=== PATIENT | female | born 1970 | race American Indian/Alaskan Native ===

== ENCOUNTER 2020-07-24 00:34 | Emergency (ER) | payer SELFPAY ==
--- NOTE | 2020-07-24 01:35 | Event Note ---
ED Screening Note Date of service: 07/24/20 Time: 01:32 ED Screening Note: pt was brought to ED c/o chest pain, sob, generalized body aches, cough, and SINHA since yesterday. She reports fever at home of 104. She states that last night she felt like she was going to pass out and so called EMS. When the checked her BP it was 200 systolic and she had temp of 102. Pt admits that she did not take her BP meds for the day. She has hx asthma and HTN This initial assessment/diagnostic orders/clinical plan/treatment(s) is/are subject to change based on patients health status, clinical progression and re- assessment by fellow clinical providers in the ED. Further treatment and workup at subsequent clinical providers discretion. Patient/guardian urged not to elope from the ED as their condition may be serious if not clinically assessed and managed. Initial orders include: Chest pain order set
[2020-07-24 01:47] LABS: Basophils % (Auto) 0.7 % (0.0-1.8); Eosinophils % (Auto) 0.2 % (0.0-4.3); Hematocrit 40.5 % (30.3-42.9); Hemoglobin 13.7 gm/dl (10.1-14.3); Lymphocytes # (Auto) 1.5 K/mm3 (1.2-5.4); Lymphocytes % (Auto) 26.8 % (13.4-35.0); Mean Corpuscular HGB Conc 34 % (30-34); Mean Corpuscular Volume 83 fl (79-97); Monocytes # (Auto) 0.7 K/mm3 (0.0-0.8); Monocytes % (Auto) 11.9 % (0.0-7.3); Platelet Count 215 K/mm3 (140-440); Red Blood Count 4.88 M/mm3 (3.65-5.03)
[2020-07-24 02:07] LABS: Alanine Aminotransferase 46 units/L (7-56); Albumin 4.1 g/dL (3.9-5); BUN/Creatinine Ratio 13; Blood Urea Nitrogen 14 mg/dL (7-17); Hemolysis Index 1
--- NOTE | 2020-07-24 02:35 | XRay Report ---
XR chest routine 2V INDICATION / CLINICAL INFORMATION: Chest Pain COMPARISON: None available. FINDINGS: SUPPORT DEVICES: None. HEART / MEDIASTINUM: No significant abnormality. LUNGS / PLEURA: Patchy bilateral airspace disease in a peripheral predilection. Costophrenic sulci ar e sharp. No pneumothorax. ADDITIONAL FINDINGS: No significant additional findings. IMPRESSION: 1. Bilateral airspace disease concerning for infection. Covid is a consideration. Signer Name: Bienvenido Valera MD Signed: 07/24/2020 2:30 AM Workstation Name: [id number]
[2020-07-24] MEDS ORDERED: dexAMETHasone 20 MG/5 ML VIAL IV ONE (03:15)
[2020-07-24] MEDS ORDERED: cefTRIAXone/NS 1 GM/50 ML 1 GM/50 ML BAG IV ONE (03:15)
[2020-07-24] MEDS ORDERED: ASPIRIN 325 MG TAB PO ONE (03:16)
[2020-07-24] MEDS ORDERED: ACETAMINOPHEN 500 MG TAB PO ONE (03:27)
--- NOTE | 2020-07-24 03:30 | Emergency Department Report ---
ED General Adult HPI - General Chief complaint: Chest Pain Stated complaint: HIGH BLOOD PRESSURE PUI?: Yes Source: patient Mode of arrival: Stretcher Limitations: No Limitations - History of Present Illness Initial comments: Patient is a 50-year-old -[place] female history of asthma who presents for cough ,malaise, and body aches with intermittent nausea x3 days. Patient denies suspicious contacts or travel. No T-max noted at home no fever noted in triage today. Cough is productive thick clear. Symptoms are exacerbated by activity. Patient states out of albuterol inhaler. Severity scale (0 -10): 3 - Related Data Previous Rx's Medication Instructions Recorded Last Taken Type Albuterol Mdi (or & Nicu Only) 2 puff IH QID PRN #8.5 gram 07/24/20 Unknown Rx [ProAir HFA Inhaler] Azithromycin 500 mg PO DAILY #5 tablet 07/24/20 Unknown Rx dexAMETHasone [Decadron] 4 mg PO Q12H 3 Days #6 tablet 07/24/20 Unknown Rx Allergies Allergy/AdvReac Type Severity Reaction Status Date / Time morphine Allergy Itching Verified 07/24/20 01:39 ED Review of Systems ROS: Stated complaint: HIGH BLOOD PRESSURE Other details as noted in HPI Constitutional: chills, fever, malaise Eyes: denies: eye pain, eye discharge, vision change ENT: denies: ear pain, throat pain Respiratory: cough, shortness of breath, wheezing Cardiovascular: denies: chest pain, palpitations Endocrine: no symptoms reported Gastrointestinal: denies: abdominal pain, nausea, vomiting, diarrhea Genitourinary: denies: urgency, dysuria, discharge Musculoskeletal: other (bodyaches ) Skin: denies: rash, lesions Neurological: denies: headache, weakness, paresthesias Psychiatric: denies: anxiety, depression Hematological/Lymphatic: denies: easy bleeding, easy bruising ED Past Medical Hx - Past Medical History Previous Medical History?: Yes Hx Hypertension: Yes Hx Asthma: Yes - Surgical History Past Surgical History?: Yes Additional Surgical History: Hysterectomy - Social History Smoking Status: Current Every Day Smoker Substance Use Type: Alcohol - Medications Home Medications: Home Medications Medication Instructions Recorded Confirmed Last Taken Type Albuterol Mdi (or & Nicu Only) 2 puff IH QID PRN #8.5 gram 07/24/20 Unknown Rx [ProAir HFA Inhaler] Azithromycin 500 mg PO DAILY #5 tablet 07/24/20 Unknown Rx dexAMETHasone [Decadron] 4 mg PO Q12H 3 Days #6 tablet 07/24/20 Unknown Rx ED Physical Exam - General Limitations: No Limitations General appearance: alert, in no apparent distress - Head Head exam: Present: atraumatic, normocephalic - Eye Eye exam: Present: normal appearance, EOMI Pupils: Present: normal accommodation - ENT ENT exam: Present: mucous membranes moist - Neck Neck exam: Present: normal inspection, full ROM. Absent: tenderness - Respiratory Respiratory exam: Present: normal lung sounds bilaterally. Absent: respiratory distress, wheezes, rales, rhonchi, stridor, chest wall tenderness - Cardiovascular Cardiovascular Exam: Present: regular rate, normal rhythm, normal heart sounds. Absent: systolic murmur, diastolic murmur, rubs, gallop - GI/Abdominal GI/Abdominal exam: Present: soft, normal bowel sounds. Absent: distended, tenderness, guarding, rebound, rigid, bruit, hernia - Rectal Rectal exam: Present: deferred - Extremities Exam Extremities exam: Present: normal inspection, full ROM. Absent: tenderness - Back Exam Back exam: Present: normal inspection, full ROM. Absent: tenderness, CVA tenderness (R), CVA tenderness (L) - Neurological Exam Neurological exam: Present: alert, oriented X3, CN II-XII intact, normal gait - Expanded Neurological Exam Expanded Patient oriented to: Present: person, place, time Speech: Present: fluid speech Motor strength exam: RUE: 5, LUE: 5, RLE: 5, LLE: 5 Best Eye Response (Violetta): (4) open spontaneously Best Motor Response (Violetta): (6) obeys commands Best Verbal Response (Violetta): (5) oriented Violetta Total: 15 - Psychiatric Psychiatric exam: Present: normal affect, normal mood - Skin Skin exam: Present: warm, dry, intact, normal color. Absent: rash ED Course Vital Signs 07/24/20 07/24/20 01:27 02:55 Temperature 99.8 F H Pulse Rate 91 H 84 Respiratory 20 20 Rate Blood Pressure 156/115 Blood Pressure 186/114 [Left] O2 Sat by Pulse 97 97 Oximetry ED Medical Decision Making - Lab Data Result diagrams: 07/24/20 01:34 07/24/20 01:34 - EKG Data EKG shows normal: sinus rhythm, axis, intervals, QRS complexes, ST-T waves Rate: normal - EKG Data When compared to previous EKG there are: previous EKG unavailable Interpretation: normal EKG NSR no ST Elevated [place] , interp by ed attending. 07/24/20 03:53 - Radiology Data Radiology results: report reviewed, image reviewed FINDINGS: SUPPORT DEVICES: None. HEART / MEDIASTINUM: No significant abnormality. LUNGS / PLEURA: Patchy bilateral airspace disease in a peripheral predilection. Costophrenic sulci are sharp. No pneumothorax. ADDITIONAL FINDINGS: No significant additional findings. IMPRESSION: 1. Bilateral airspace disease concerning for infection. Covid is a consideration. Signer Name: Bienvenido Valera MD Signed: 07/24/2020 2:30 AM Workstation Name: [id number] Transcribed By: Dictated By: Bienvenido Valera MD Electronically Authenticated By: Bienvenido Valera MD Signed Date/Time: 07/24/20229 DD/ 9 TD/TT: - Medical Decision Making CXR: Bilateral airspace disease concerning for infection. Covid is a consideration. , EKG: NSR no STEMI, plan: dc to home, with rx, azithromycin, decadron, will take refill albuterol inhaler,, will follow up with pcp in 2-3 days, discussed COVID 19 precuations. , pt verbalized agreement and understanding of same. Critical care attestation.: If time is entered above; I have spent that time in minutes in the direct care of this critically ill patient, excluding procedure time. ED Disposition Clinical Impression: Person under investigation for COVID-19 CAP (community acquired pneumonia) Qualifiers: Laterality: right Lung location: middle lobe of lung Qualified Code(s): J18.9 - Pneumonia, unspecified organism Disposition: DC-01 TO HOME OR SELFCARE Is pt being admited?: No Does the pt Need Aspirin: No Condition: Stable Instructions: Community-Acquired Pneumonia, Adult, COVID-19, Bacterial Pneumonia (ED) Additional Instructions: COVID Precautions as discussed and agreed. Return to emergency if symptoms worsen. Prescriptions: Azithromycin 500 mg PO DAILY #5 tablet dexAMETHasone [Decadron] 4 mg PO Q12H 3 Days #6 tablet Albuterol Mdi (or & Nicu Only) [ProAir HFA Inhaler] 2 puff IH QID PRN #8.5 gram PRN Reason: Shortness Of Breath Referrals: WAYNE ROSS MD [Referring] - 3-5 Days Forms: Work/School Release Form(ED) Time of Disposition: 04:20
[2020-07-24 05:02] LABS: Bacteria,Urine 2+ /HPF (Negative); Bilirubin,Urine NEG (Negative); Blood,Urine NEG (Negative); Color,Urine Yellow (Yellow); Mucus,Urine FEW /HPF; Urobilinogen,Urine < 2.0 mg/dL (<2.0)
[2020-07-24 05:12] VITALS: BP 170/105
--- NOTE | 2020-07-24 09:50 | Electrocardiograph Report ---
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
== END 2020-07-24 05:07 | disposition home or self-care (01) ==
LOC: ED 00:34
DX: J12.82 Pneumonia due to coronavirus disease 2019 (principal); I10 Essential (primary) hypertension; F17.200 Nicotine dependence, unspecified, uncomplicated; Z90.710 Acquired absence of both cervix and uterus; Z01.84 Encounter for antibody response examination; Z79.899 Other long term (current) drug therapy; Z88.6 Allergy status to analgesic agent
CPT/HCPCS: 36415; 71046; 80053; 81001; 83690; 84484; 84703; 85025; 93005; 96365; 96375; 99284; J0696; J1100